=== PATIENT | female | born 1935 | race Caucasian/White ===

== ENCOUNTER → 2016-10-02 16:09 | Outpatient (CLI) | payer MEDICARE | END | disposition home or self-care (01) | LOC: D.MAMMO 10:15 | DX: Z12.31 Encounter for screening mammogram for malignant neoplasm of breast (principal) ==

== ENCOUNTER 2017-10-01 08:04 | Day surgery (SDC) | payer MEDICARE ==
[~2017-10-01] VITALS: Ht 165.1 cm; Wt 78.9 kg
--- NOTE | ~2017-10-01 | OP ---
PATIENT NAME: MICHELLE HOGUE MEDICAL RECORD: [id number] :37 LOCATION:D.OPS ADMISSION DATE: SURGEON: RUBIN YEH MD DATE OF OPERATION: 10/01/2017 SURGEON: Rubin Yeh MD ANESTHESIA: General. ANESTHESIOLOGIST: [place] MD OPERATIONS PERFORMED: 1. AICD pulse generator exchange. 2. Pacemaker pocket revision. PREOPERATIVE DIAGNOSIS: AICD end of life. POSTOPERATIVE DIAGNOSES: AICD battery end of life, calcification of the pulse generator pocket. INDICATIONS FOR OPERATION: Pulse generator battery end of life. FINDINGS OF THE OPERATION: Pulse generator battery end of life, calcification of the pulse generator pocket. ESTIMATED BLOOD LOSS: Less than 5 cc. DESCRIPTION OF PROCEDURE: After informed consent, adequate preoperative medication and evaluation, the patient was brought to the operating room and placed on the table in the supine position. After induction of general anesthesia and application of appropriate monitoring devices, the left chest prepped and draped in a sterile field utilizing Betadine scrub, alcohol, and Betadine solution. A Betadine-impregnated drape was also used. A 1% lidocaine was infiltrated over the device as well as in the pocket. Incision was made and dissection was carried down to the pocket. The pocket was opened. The pocket was calcified. The device was removed. The pocket required debridement and expansion inferiorly and medially. The leads were dissected free of the calcification as well. The pulse generator exchange was performed and placed in the pocket. The AICD was satisfactory, as were the chronic leads. Pocket was irrigated. Instrument count and sponge count were correct times 2. Pocket was closed in layers utilizing 2-0 Vicryl on deep subcutaneous tissue, 3-0 Vicryl on superficial subcutaneous tissue, and skin approximated with 5-0 subcuticular Monocryl. Sterile dressings were applied. The patient tolerated the procedure well and transferred to the postanesthesia recovery in satisfactory condition. TRANSINT:[id number] Voice Confirmation ID: [id number] DOCUMENT ID: [id number] OPERATIVE REPORT [id number] MICHELLE HOGUE RUBIN YEH MD at 1319 CC: [id number] DICTATION DATE: 10/01/17 1151 DEPUTY COMMISSIONER: 10/01/17 1316 [facility] 10/01/17 [facility] [address] [place] [address]
--- NOTE | ~2017-10-01 | HP ---
PATIENT: MICHELLE HOGUE MEDICAL RECORD: [id number] ACCOUNT: [id number] LOCATION:D.OPS : 37 ADMISSION DATE: 10/01/17 HISTORY AND PHYSICAL EXAMINATION NameMICHELLE HOGUE (82yo, F) ID# [id number]. Date/Time09/26/2017 02:85JAVHN39/18/193[facility] Dept.NPP[facility] ClinicProviderEDESTHER HUERTA MDInsuranceMed Primary: [place] Insurance # : [id number] Referring Provider Name : RONDA CORRAL Employer Name : NONE Med Secondary: AARP (MEDICARE SUPPLEMENT) Insurance # : [id number] Referring Provider Name : RONDA CORRAL Employer Name : NONE Prescription: DSTPSDIR - Member is eligible. Chief Complaint pulse generator end-of-life evaluate for ICD generator exchange Patient's Care Team Referring Provider (): RONDA CORRAL: [address] [facility] , [address], [place] [address], , Patient's Pharmacies [facility] (ERX): [phone] [address], , [facility] MAIL DELIVERY (MAIL-ORDER, ERX): [phone] [facility] [address], , Vitals BP:168/88 sitting L arm 09/26/2017 02:33 pmBP Cuff Size:adult 09/26/2017 02:33 pmHR:84,reg 09/26/2017 02:33 pmHt:5 ft 5 in 09/26/2017 02:30 pmWt:177 lbs 09/26/2017 02:34 pmNotes:has had episodes of hearing her heart beat at night, and has been unusually tired for the past month or so 09/26/2017 02:34 pmBMI:29.5 09/26/2017 02:34 pmAllergies Reviewed Allergies SULFA (SULFONAMIDE ANTIBIOTICS)Medications Reviewed Medications gabapentin 600 mg tablet TAKE 1 TABLET TID1 filledRelayrlevothyroxine 50 mcg tablet TAKE 1 TABLET EVERY DAY09/22/17 [facility] SaltStackmetFORMIN ER 500 mg tablet,extended release 24 hr TAKE 1 TABLET EVERY DAY06/25/17 [facility] SaltStackHjhtqlfrzofdmbz-bpjudeyke-lzpiot th 3.5 mg/mL-10,000 unit/mL-0.1% eye drops08/08/17 [facility]Consumer Brandspravastatin 40 mg tablet TAKE 1 TABLET BY MOUTH EVERY DAY FOR 90 DAYS09/22/17 [facility] SaltStackpropranolol 10 mg tablet TAKE 1 TABLET EVERY DAY09/25/17 [facility] SaltStack VITAMIN D 3 10,000 UNITS 1 WEEKLY, CALCIUM D 400MG 1 DAILY,FISH OIL 300MG X2 DAILY Vaccines Reviewed Vaccines Vaccine TypeDateAmt.RouteSiteLot #Mfr.Exp. 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 Vitamin D deficiency Hypercholesterolemia Hyperlipidemia Hereditary essential tremor Mononeuritis HISTORY AND PHYSICAL [id number] MICHELLE HOGUE Idiopathic peripheral neuropathy Conduction disorder of the heart Peripheral venous insufficiency Acute bronchitis Allergic rhinitis Allergic bronchitis Glossitis Gastroesophageal reflux disease Irritable bowel syndrome Chronic renal failure Chronic progressive renal failure Renal failure syndrome Seborrheic dermatitis Foot callus Keloid scar Osteoarthritis of knee Hip pain Degeneration of lumbosacral intervertebral disc Shoulder tendinitis Bursitis of hip Neuralgia Hammer toe Acquired deformity of ankle AND/OR foot Abnormal involuntary movement Dependent edema Dysphagia Abnormal glucose level On examination - Right foot deformity Motion sickness 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 Metatarsalgia Bunion Family History Reviewed Family History Unspecified Relation- Diabetes mellitus - previously recorded as Diabetes - Heart diseaseSocial History Reviewed Social History Cardiology Family history of heart disease?: Y Smoking Status: Former smoker High Cholesterol: Y High blood pressure: Y Exercise level: Moderate Overweight: Y Obese: Y Diabetes: Y Alcohol intake: Occasional (Notes: 1-2wkly (wine)) Occupation: RETIRED Marital status: Is blood transfusion acceptable in an emergency?: Y Surgical History Reviewed Surgical History Other - 1996 - HERNIATE DISK,NECK TIRE RECAPPER History (not configured) Past Medical History Reviewed Past Medical History Diabetes: Y Heart Rhythm Disorder: Y Shortness of Breath: Y Notes: has never heard back about consult for foot drop. Documents for Discussion N/A Screening None recorded. [facility] Fatigue HISTORY AND PHYSICAL [id number] MICHELLE HOGUE Reported by patient. Quality: continuous Severity: normal sleep patterns Duration: symptoms lasting over 2 weeks Timing: worse Context: no problems/stress at work or home Modifying Factors: new stressors in life AICD end-of-life ROS Patient reports arthralgias/joint pain but reports no muscle aches, no muscle weakness, no back pain, and no swelling in the extremities; better with orthotic, foot pain. She reports numbness but reports no loss of consciousness, no weakness, no seizures, no dizziness, and no headaches; neuropathy. She reports no fever, no night sweats, no significant weight gain, no significant weight loss, and no exercise intolerance. She reports no chest pain, no arm pain on exertion, no shortness of breath when walking, no shortness of breath when lying down, no palpitations, and no known heart murmur. She reports no cough, no wheezing, no shortness of b reath, and no coughing up blood. She reports no abnormal mole, no jaundice, and no rashes. She reports no depression, no sleep disturbances, feeling safe in relationship, and no alcohol abuse. ROS as noted in the HPI Physical Exam Patient is an 82-year-old female. Constitutional: General Appearance: healthy-appearing, well-nourished, and well-developed. Level of Distress: NAD. Ambulation: limited ambulation. Psychiatric: Insight: good judgement. Mental Status: normal mood and affect and active and alert. Orientation: to time, place, and person. Memory: recent memory normal and remote memory normal. Head: Head: normocephalic and atraumatic. Lungs: Respiratory effort: no dyspnea. Percussion: no dullness, flatness, or hyperresonance. Auscultation: no wheezi ng, rales/crackles, or rhonchi and breath sounds normal, good air movement, and CTA except as noted. Cardiovascular: Apical Impulse: not displaced. Heart Auscultation: normal S1 and S2; no murmurs, rubs, or gallops; and RRR. Neck vessels: no carotid bruits. Pulses including femoral / pedal: normal throughout. Musculoskeletal:: Motor Strength and Tone: normal tone and motor strength. Joints, Bones, and Muscles: no contractures or malalignment and tenderness, limited ROM, and bony deformity; left knee is bone on bone and is her most limiting factor. Extremities: no cyanosis, edema, varicosities, or palpable cord. Skin: Inspection and palpation: no rash, lesions, ulcer, induration, nodules, jaundice, or abnormal nevi and good turgor. Nails: normal. Assessment / Plan cardiomyopathy 1. Implanted defibrillator generator failure T82.118A: Breakdown (mechanical) of other cardiac electronic device, initial encounter Discussion Notes pulse generator end-of-life good chronically I have discussed her disease process with her in detail as well as the alternative methods of treatment we discussed automatic implantable cardio defibrillator HISTORY AND PHYSICAL [id number] MICHELLE HOGUE generator exchange and, pocket revision ,including the expected benefits and risk which included bleeding, infection, stroke, , and the imponderables. skin new for automatic implantable cardio defibrillator generator extremely RUBIN HUERTA MD at 1337 CC: [id number] DICTATION DATE: 09/26/17 1400 UTILITY LOCATOR: JOSH 09/28/17 1400 [facility] [address] [place] [address]
[2017-10-01] MEDS ORDERED: PRAVACHOL40 MG PO (09:20)
[2017-10-01] MEDS ORDERED: LEVOTHYROXINE50 MCG PO (09:20)
[2017-10-01] MEDS ORDERED: INDERAL10 MG PO (09:21)
[2017-10-01] MEDS ORDERED: GLUCOPHAGE500 MG PO (09:22)
[2017-10-01] MEDS ORDERED: NEURONTIN600 MG PO (09:22)
[2017-10-01] MEDS ORDERED: CALCIUM 500 + D1 TAB PO (09:23)
[2017-10-01] MEDS ORDERED: FISH OIL 1,0001 CA1 PO (09:24)
[2017-10-01 09:25] VITALS: BP 148/67; Ht 165.1 cm; Wt 78.9 kg
[2017-10-01 09:40] LABS: HEMATOCRIT 43.4 % (36.0-48.0); HEMOGLOBIN 14.4 g/dL (12-16); MCH 32.4 pg (26.0-34.0); MCHC 33.2 g/dL (31.0-37.0); MCV 97.5 fL (80.0-100.0); MEAN PLATELET VOLUME 11.3 fL (7.4-10.4); RBC 4.45 10x6/uL (4.00-5.40); RDW 13.1 % (11.5-14.5); WBC 5.3 10x3/uL (4.8-10.8)
[2017-10-01 09:51] LABS: ANION GAP 14.8 mmol/L (8-16); CALCIUM 9.6 mg/dL (8.5-10.1); CARBON DIOXIDE 26.8 mmol/L (21.0-32.0); CREATININE - SERUM 1.1 mg/dL (0.6-1.3); POTASSIUM - SERUM 4.6 mmol/L (3.5-5.1)
[2017-10-01 09:56] LABS: APTT 25.1 SECONDS (22.8-39.4)
[2017-10-01 10:07] LABS: INR 0.97 (0.85-1.17); PROTIME 12.5 SECONDS (11.6-15.0)
== END 2017-10-01 14:30 | disposition home or self-care (01) ==
LOC: D.OPS 08:04
PROVIDERS: Internal Medicine Cardiovascular Disease
DX: Z45.02 Encounter for adjustment and management of automatic implantable cardiac defibrillator (principal); E11.9 Type 2 diabetes mellitus without complications; Z01.812 Encounter for preprocedural laboratory examination

== ENCOUNTER 2019-02-10 08:00 | Outpatient (CLI) | payer MEDICARE ==
[2017-10-01 09:25] VITALS: BMI 29.0
[~2019-02-10 08:00] MED LIST: CALCIUM 500 + D1 TAB PO; FISH OIL 1,0001 CA1 PO; GLUCOPHAGE500 MG PO; INDERAL10 MG PO; LEVOTHYROXINE50 MCG PO; NEURONTIN600 MG PO; PRAVACHOL40 MG PO
== END 2019-02-10 09:00 | disposition home or self-care (01) ==
LOC: D.MAMMO 08:00
PROVIDERS: ATTEND Family Medicine
DX: Z12.31 Encounter for screening mammogram for malignant neoplasm of breast (principal)

== ENCOUNTER 2019-11-25 11:53 | Emergency (ER) | payer MEDICARE ==
[~2019-11-25] VITALS: Ht 165.1 cm; Wt 79.1 kg
[2019-11-25 12:03] VITALS: Ht 165.1 cm; Wt 79.1 kg
[2019-11-25 12:46] LABS: BASOPHILS 0.4 % (0-2); EOSINOPHILS 2.3 % (0-7); HEMATOCRIT 44.7 % (36.0-48.0); HEMOGLOBIN 14.8 g/dL (12-16); IMMATURE GRANULOCYTES 0.4 % (0-5); MCH 31.7 pg (26.0-34.0); MCHC 33.1 g/dL (31.0-37.0); MCV 95.7 fL (80.0-100.0); MEAN PLATELET VOLUME 10.8 fL (7.4-10.4); MONOCYTES 9.7 % (2-11); NEUTROPHILS 55.2 % (40-80); PLATELET COUNT 195 10x3/uL (130-400); RBC 4.67 10x6/uL (4.00-5.40); RDW 13.5 % (11.5-14.5); WBC 7.3 10x3/uL (4.8-10.8)
[2019-11-25 12:49] LABS: CALCIUM 9.1 mg/dL (8.5-10.1); CARBON DIOXIDE 29.5 mmol/L (21.0-32.0); CREATININE - SERUM 1.3 mg/dL (0.6-1.3); POTASSIUM - SERUM 4.5 mmol/L (3.5-5.1)
[2019-11-25 12:55] LABS: ALBUMIN 4.1 g/dL (3.4-5.0); BILIRUBIN - TOTAL 0.48 mg/dL (0.2-1.3); PROTEIN - SERUM 6.6 g/dL (6.4-8.2)
[2019-11-25 13:11] LABS: BACTERIA FEW /hpf (NEGATIVE); BILIRUBIN NEGATIVE (NEGATIVE); EPITHELIAL CELLS 0-5 /hpf (0-5); GLUCOSE NEGATIVE (NEGATIVE); KETONE NEGATIVE (NEGATIVE); NITRITE NEGATIVE (NEGATIVE); SPECIFIC GRAVITY 1.005 (1.005-1.020); UROBILINOGEN NORMAL (NORMAL)
[2019-11-25 13:12] LABS: RED CELLS - URINE RARE /hpf (0-5)
[2019-11-25] MEDS ORDERED: KEFLEX500 MG PO (16:01)
[2019-11-25] MEDS ORDERED: TYLENOL W/CODEI1 TAB PO (16:01)
[2019-11-25 16:11] VITALS: BP 125/74
== END 2019-11-25 16:12 | disposition home or self-care (01) ==
LOC: D.ER 11:53
PROVIDERS: Family Medicine
DX: N39.0 Urinary tract infection, site not specified (principal); E07.9 Disorder of thyroid, unspecified; E11.40 Type 2 diabetes mellitus with diabetic neuropathy, unspecified; Z95.0 Presence of cardiac pacemaker; Z79.84 Long term (current) use of oral hypoglycemic drugs